=== PATIENT | male | born 1955 | race Caucasian/White ===

== ENCOUNTER 2023-11-25 08:22 | Emergency (ER) | payer MEDICARE, OTHER ==
[2023-11-25] MEDS ORDERED: Acetaminophen 500 MG TAB ONE (09:02)
[2023-11-25 09:32] LABS: Hematocrit 41.9 % (38.8-50.0); Hemoglobin 14.9 g/dL (13.5-17.5); Mean Corpuscular HGB CONC 35.6 g/dL (32.0-36.0); Mean Corpuscular Hemoglobin 31.4 pg (27.0-33.0); Mean Corpuscular Volume 88.2 fL (81.2-95.1); Mean Platelet Volume 9.5 fL (7.4-10.4); Platelet Count 124 10x3/uL (150-450); RBC Distribution Width 12.5 % (11.5-14.5); Red Blood Cell (RBC) Count 4.75 10x6/uL (4.32-5.72); White Blood Cell (WBC) Count 3.7 10x3/uL (3.5-10.5)
[2023-11-25 09:38] LABS: ALT (SGPT) 65 U/L (8-55); AST (SGOT) 54 U/L (5-34); Albumin 3.6 g/dL (3.4-4.8); Alkaline Phosphatase 39 U/L (40-110); Anion Gap 15 mmol/L (10-20); BUN (Urea Nitrogen) 29 mg/dL (8.4-25.7); Bilirubin, Total 1.1 mg/dL (0.2-1.2); Calc. Creatinine Clearance 0 mL/min (70-130); Carbon Dioxide 22 mmol/L (23-31); Chloride 99 mmol/L (98-107); Estimated GFR 60; Globulin 2.9 g/dL (2.4-3.5); Glucose 106 mg/dL (80-115); Magnesium 1.9 mg/dL (1.6-2.6); Potassium 4.2 mmol/L (3.5-5.1); Protein, Total 6.5 g/dL (5.8-8.1); Sodium 132 mmol/L (136-145)
[2023-11-25 09:39] LABS: MDiff Complete? YES
[2023-11-25 09:41] LABS: Troponin I 0.021 ng/mL (< 0.028)
[2023-11-25 09:59] LABS: INR-International Normal Ratio 1.3; PTT 32.5 sec (22.0-33.0); Prothrombin Time 13.9 sec (9.5-12.1)
[2023-11-25 10:19] LABS: Band 19 % (5-11); Lymphocytes 22 % (21-51); Monocytes 5 % (0-10); Neutrophil 54 % (42-75)
[2023-11-25 10:20] LABS: Platelet Adequacy Comment Platelets Normal
== END 2023-11-25 10:34 | disposition home or self-care (01) ==
LOC: CSHERS 08:22
DX: J18.9 Pneumonia, unspecified organism (principal); I10 Essential (primary) hypertension
CPT/HCPCS: 71045; 80053; 83605; 83735; 83880; 84145; 84484; 85025; 85610; 85730; 87428; 93005